=== PATIENT | female | born 1935 | race Caucasian/White ===

== ENCOUNTER 2017-09-10 20:22 | Inpatient (IN) | payer OTHER ==
[~2017-09-10] VITALS: Ht 170.2 cm; Wt 64.8 kg
--- NOTE | ~2017-09-10 | 2DMMODE ---
[facility] [address] [place] [address] 2 D/M-MODE ECHOCARDIOGRAM Name: AUSTIN NOLASCO Room #: 363-P ADM IN ..#: [id number] Admission: 09/10/17 Attend Phys: Hugo Cramer Discharge: Date of : 31 Date of Service: 09/11/17 1003 Report #: [id number] THIS REPORT FOR: //name// APPROVED REPORT Study performed: 09/11/2017 09:18:20 EXAM: Comprehensive 2D, Doppler, and color-flow Echocardiogram Patient Location: Bedside Room #: 363 Status: routine BSA: 1.75 HR: 82 bpm BP: 155/67 mmHg Other Information Study Quality: Good Indications Sepsis Dyspnea Hypertension/HDD 2D Dimensions RVDd: 25.99 mm LVEF(%): 54.95 (>50%) IVSd: 10.00 (7-11mm) LVOT Diam: 20.28 (18-24mm) LVDd: 47.51 mm PWd: 8.88 (7-11mm) Ascending Ao: 35.92 (22-36mm) LVDs: 33.96 (25-40mm) Aortic Root: 31.17 mm IVC: 20.00 mm Hogue's LVEF: 54.95 % Volumes Left Atrial Volume (Systole) Single Plane 4CH: 56.95 mL Single Plane 2CH: 46.65 mL LA ESV Index: 32.00 mL/m2 Aortic Valve AoV Peak Raleigh.: 0.99 m/s AO Peak Gr.: 3.95 mmHg LVOT Max P.54 mmHg LVOT Max V: 1.07 m/s AVTAR Vmax: 3.46 cm2 Mitral Valve E/A Ratio: 0.8 [facility] [place] [address] 2 D/M-MODE ECHOCARDIOGRAM Name: AUSTIN NOLASCO Room #: 363-P [facility] IN ..#: [id number] Admission: 09/10/17 Attend Phys: Hugo Cramer Discharge: Date of : 31 Date of Service: 09/11/17 1003 Report #: [id number] MV Decel. Time: 169.71 ms MV E Max Raleigh.: 0.75 m/s MV A [place].: 0.96 m/s MV PHT: 49.22 ms IVRT: 106.11 ms Pulmonary Valve PV Peak Raleigh.: 1.14 m/s PV Peak Gr.: 5.23 mmHg Pulmonary Vein P Vein S: 0.48 m/s P Vein A: 0.27 m/s P Vein D: 0.39 m/s P Vein A Dur.: 115.3 msec P Vein S/D Ratio: 1.23 Tricuspid Valve TR Peak Raleigh.: 3.58 m/s RAP Estimate: 10.00 mmHg TR Peak Gr.: 51.23 mmHg PA Pressure: 61.00 mmHg Left Ventricle The left ventricle is normal size. There is normal left ventricular wall thickness. The left ventricular systolic function is normal. LVEF is 55-60%. Grade I - abnormal relaxation pattern. Right Ventricle The right ventricle is normal size. The right ventricular systolic function is normal. Atria The left atrium size is normal. Right atrium is dilated. Aortic Valve Aortic valve is calcified and thickened but has adequate excursion. No aortic regurgitation is present. There is no aortic valvular stenosis. Mitral Valve The mitral valve is normal in structure. Mild mitral regurgitation. No evidence of mitral valve stenosis. Tricuspid Valve The tricuspid valve is normal in structure. Moderate tricuspid regurgitation. Estimated PAP 61mmHg. Pulmonic Valve The pulmonary valve is normal in structure. Trace pulmonic [address] [address] 2 D/M-MODE ECHOCARDIOGRAM Name: NOLASCOAUSTIN Vielka Room #: 363-P [facility] IN [facility]#: [id number] Admission: 09/10/17 Attend Phys: Hugo Cramer Discharge: Date of : 31 Date of Service: 09/11/17 1003 Report #: [id number] regurgitation. Great Vessels The aortic root is normal in size. The ascending aorta is borderline dilated. IVC is dilated and collapses >50% with inspiration. Pericardium Trace hemodynamically insignificant anterior pericardial effusion. <Conclusion> The left ventricle is normal size. LVEF is 55-60%. Right atrium is dilated. Aortic valve is calcified and thickened but has adequate excursion. No aortic regurgitation is present. There is no aortic valvular stenosis. The mitral valve is normal in structure. Mild mitral regurgitation. The tricuspid valve is normal in structure. Moderate tricuspid regurgitation. Estimated PAP 61mmHg. The pulmonary valve is normal in structure. Trace pulmonic regurgitation. The ascending aorta is borderline dilated. Trace hemodynamically insignificant anterior pericardial effusion. <ELECTRONICALLY SIGNED> By: Gurinder Kaur MD 09/11/17 1003 1003 100 Gurinder Kaur MD /INF
--- NOTE | ~2017-09-10 | EKG ---
[address] [address] ELECTROCARDIOGRAM REPORT Name: AUSTIN NOLASCO Room #: 363-P ADM IN M.R.#: [id number] Admission: 09/10/17 Attend Phys: Nate Goff DO Discharge: Date of : 31 Report #: [id number] THIS REPORT FOR: //name// [facility] ED Test Date: 2017-09-10 Test Time: 20:31:20 Pat Name: AUSTIN NOLASCO Department: Room: 363 Gender: F [employer] Supervisor: [id number] : 1935 Requested By: Stefania Singer Order Number: [id number] MD: Josep Dc Measurements Intervals [place] Rate: 91 P: 80 WA: 152 QRS: 94 QRSD: 93 T: 66 QT: 355 QTc: 437 Interpretive Statements Sinus rhythm Right axis deviation No previous ECG available for comparison Electronically Signed On 09-10-2017 22:40:12 [employer] by Josep Dc [email or web address] <ELECTRONICALLY SIGNED> By: Josep Dc MD 09/10/170 30 30 MD SARAH Villagomez
[2017-09-10 20:22] VITALS: BP 135/61
[2017-09-10 20:43] LABS: HEMATOCRIT 38.1 % (37.0-47.0); HEMOGLOBIN 12.5 gm/dL (12.0-15.0); MCH 30.3 pg (26.0-34.0); MCHC 32.7 g/dL (28.0-37.0); MCV 92.8 fL (80.0-100.0); RBC 4.11 mil/uL (4.20-5.00); RDW 13.9 % (10.5-14.5); WBC 13.1 thou/uL (4.0-11.0)
[2017-09-10 20:52] LABS: ABG SAMPLE TYPE ARTERIAL; BE(vivo) -0.6 mmol/L (-2 to +3); LACTATE 1.54 mmol/L (0.5-2.0); O2(CT) 17.1 mL/dL (15.0-23.0); O2Hb 93.4 % (92.0-98.0); PCO2 39.1 mmHg (35.0-45.0); PO2 73.4 mmHg (80.0-100.0); STICK SITE R.RADIAL; pH 7.405 (7.360-7.450); sO2 94.9 % (92.0-98.0); tCO2 25.2 mmol/L (24.0-30.0)
[2017-09-10 20:53] LABS: CALCIUM 8.8 mg/dL (8.5-10.1); CREATININE 1.1 mg/dL (0.6-1.0); POTASSIUM 4.4 mmol/L (3.5-5.1)
[2017-09-10] MEDS ORDERED: SEREVENT DISKU50 MCG INH (21:00)
[2017-09-10 21:01] LABS: TOTAL BILIRUBIN 0.6 mg/dL (<0.1-1.0); TROPONIN-I 0.07 ng/mL (<0.06)
[2017-09-10] MEDS ORDERED: DIOVAN40 MG PO (21:01)
[2017-09-10] MEDS ORDERED: PROAIR HFA8.5 GM INH (21:02)
[2017-09-10 22:13] VITALS: BP 108/56
[2017-09-10 22:49] VITALS: BP 110/69
[2017-09-10] MEDS ORDERED: ONE-A-DAY WOMENS PO (23:21)
[2017-09-10] MEDS ORDERED: Cod Liver Oil PO (23:21)
[2017-09-10] MEDS ORDERED: LUTEIN-ZEAXANT1 EACH PO (23:22)
[2017-09-10] MEDS ORDERED: PRESERVISION T1 EACH PO (23:28)
[2017-09-11 03:06] LABS: HEMATOCRIT 36.2 % (37.0-47.0); HEMOGLOBIN 11.6 gm/dL (12.0-15.0); MCH 30.1 pg (26.0-34.0); MCHC 32.2 g/dL (28.0-37.0); MCV 93.6 fL (80.0-100.0); RBC 3.86 mil/uL (4.20-5.00); WBC 11.3 thou/uL (4.0-11.0)
[2017-09-11 03:21] LABS: CALCIUM 8.4 mg/dL (8.5-10.1); CREATININE 0.8 mg/dL (0.6-1.0); POTASSIUM 4.1 mmol/L (3.5-5.1); TROPONIN-I 0.05 ng/mL (<0.06)
[2017-09-11 05:33] VITALS: BP 155/67
[2017-09-11 09:09] LABS: GLYCOHEMOGLOBIN (HGB A1C) 6.1 % (4.8-5.6)
[2017-09-11 12:47] VITALS: BP 108/66
[2017-09-11 17:00] VITALS: BP 119/62
[2017-09-11 19:30] VITALS: BP 113/53
[2017-09-12 03:49] VITALS: BP 133/78
[2017-09-12 05:54] LABS: ALBUMIN 2.6 g/dL (3.4-5.0); CALCIUM 9.1 mg/dL (8.5-10.1); CREATININE 0.9 mg/dL (0.6-1.0); PHOSPHORUS 4.2 mg/dL (2.5-4.9); POTASSIUM 4.4 mmol/L (3.5-5.1)
[2017-09-12 08:00] VITALS: BP 102/54
[2017-09-12 12:04] VITALS: BP 105/62
[2017-09-12 16:08] VITALS: BP 115/89
[2017-09-12 20:25] VITALS: BP 121/68
[2017-09-13 04:30] VITALS: BP 123/76
[2017-09-13 06:19] LABS: HEMATOCRIT 36.3 % (37.0-47.0); HEMOGLOBIN 11.8 gm/dL (12.0-15.0); MCH 29.8 pg (26.0-34.0); MCHC 32.6 g/dL (28.0-37.0); MCV 91.4 fL (80.0-100.0); RBC 3.97 mil/uL (4.20-5.00); RDW 13.8 % (10.5-14.5); WBC 20.2 thou/uL (4.0-11.0)
[2017-09-13 06:28] LABS: MANUAL DIFF YES
[2017-09-13 06:29] LABS: PLATELET COUNT 338 thou/uL (150-400)
[2017-09-13 06:32] LABS: CALCIUM 8.8 mg/dL (8.5-10.1); CREATININE 0.9 mg/dL (0.6-1.0); POTASSIUM 4.6 mmol/L (3.5-5.1)
[2017-09-13 07:43] VITALS: BP 129/75
[2017-09-13 08:46] LABS: ABSOLUTE NEUTROPHILS 18.2 thou/uL (1.4-8.2); PLATELET ESTIMATE NORMAL; TOTAL CELL COUNT 100
[2017-09-13] MEDS ORDERED: KEFLEX500 M1 PO (09:12)
[2017-09-13] MEDS ORDERED: AZITHROMYCIN 2250 MG PO (09:12)
[2017-09-13] MEDS ORDERED: MEDROL DOSPAK21 TA1 PO (09:13)
[2017-09-13 11:30] VITALS: BP 129/75
[2017-09-13 11:57] VITALS: BP 144/72
[2017-09-14 01:06] LABS: INFLUENZA B Negative (Negative); METAPNEUMOVIRUS Negative (Negative)
== END 2017-09-13 17:50 | disposition home health service (06) | DRG 871 ==
LOC: ER 20:22 → 3W 21:46 → EROBS 21:46 → 3W 22:11
PROVIDERS: Family Medicine; Hospitalist; Nurse Practitioner Acute Care; Physician Assistant
DX: A41.9 Sepsis, unspecified organism (principal); J18.9 Pneumonia, unspecified organism; J96.01 Acute respiratory failure with hypoxia; I31.3 Pericardial effusion (noninflammatory); J44.0 Chronic obstructive pulmonary disease with (acute) lower respiratory infection; I10 Essential (primary) hypertension; R73.9 Hyperglycemia, unspecified; R59.9 Enlarged lymph nodes, unspecified; Z96.1 Presence of intraocular lens; K21.9 Gastro-esophageal reflux disease without esophagitis; I34.0 Nonrheumatic mitral (valve) insufficiency; I07.1 Rheumatic tricuspid insufficiency; Z99.81 Dependence on supplemental oxygen; Z79.899 Other long term (current) drug therapy
CPT/HCPCS: 10779

== ENCOUNTER → 2018-06-24 | Outpatient (CLI) | payer OTHER ==
[~2018-06-24] MED LIST: AZITHROMYCIN 2250 MG PO; Cod Liver Oil PO; DIOVAN40 MG PO; KEFLEX500 M1 PO; LUTEIN-ZEAXANT1 EACH PO; MEDROL DOSPAK21 TA1 PO; ONE-A-DAY WOMENS PO; PRESERVISION T1 EACH PO; PROAIR HFA8.5 GM INH; SEREVENT DISKU50 MCG INH
== END ==
LOC: MRI 14:16
DX: M51.16 Intervertebral disc disorders with radiculopathy, lumbar region (principal); M48.062 Spinal stenosis, lumbar region with neurogenic claudication; M25.78 Osteophyte, vertebrae; M41.86 Other forms of scoliosis, lumbar region

== ENCOUNTER → 2018-09-26 | Outpatient (CLI) | payer OTHER | LOC: RAD 12:07 | DX: M16.0 Bilateral primary osteoarthritis of hip (principal); M43.08 Spondylolysis, sacral and sacrococcygeal region; M47.816 Spondylosis without myelopathy or radiculopathy, lumbar region ==

== ENCOUNTER → 2019-03-03 | Outpatient (CLI) | payer OTHER | LOC: RAD 13:45 | DX: J43.9 Emphysema, unspecified (principal); J84.10 Pulmonary fibrosis, unspecified; R91.1 Solitary pulmonary nodule; M47.814 Spondylosis without myelopathy or radiculopathy, thoracic region; M41.84 Other forms of scoliosis, thoracic region ==

== ENCOUNTER → 2019-03-31 | Outpatient (CLI) | payer OTHER | LOC: CAT 11:29 | DX: R91.1 Solitary pulmonary nodule (principal); J47.9 Bronchiectasis, uncomplicated; J98.4 Other disorders of lung ==

== ENCOUNTER → 2019-05-28 | Outpatient (CLI) | payer OTHER | LOC: RAD 14:08 | DX: J44.9 Chronic obstructive pulmonary disease, unspecified (principal); J98.4 Other disorders of lung; J84.10 Pulmonary fibrosis, unspecified; M47.815 Spondylosis without myelopathy or radiculopathy, thoracolumbar region; M41.85 Other forms of scoliosis, thoracolumbar region ==

== ENCOUNTER → 2019-09-14 | Outpatient (CLI) | payer OTHER | LOC: CAT 11:07 | DX: J47.9 Bronchiectasis, uncomplicated (principal); I31.3 Pericardial effusion (noninflammatory); I25.10 Atherosclerotic heart disease of native coronary artery without angina pectoris; J98.4 Other disorders of lung; J90 Pleural effusion, not elsewhere classified; M47.819 Spondylosis without myelopathy or radiculopathy, site unspecified; M41.80 Other forms of scoliosis, site unspecified; R91.1 Solitary pulmonary nodule ==

== ENCOUNTER → 2020-12-21 | Outpatient (CLI) | payer OTHER | LOC: RAD 15:32 | PROVIDERS: ATTEND Internal Medicine | DX: J44.9 Chronic obstructive pulmonary disease, unspecified (principal); J90 Pleural effusion, not elsewhere classified ==

== ENCOUNTER → 2021-01-02 | Outpatient (CLI) | payer OTHER | LOC: RAD 16:16 | PROVIDERS: ATTEND Internal Medicine | DX: J44.9 Chronic obstructive pulmonary disease, unspecified (principal); J90 Pleural effusion, not elsewhere classified ==

== ENCOUNTER → 2021-01-04 | Outpatient (CLI) | payer OTHER ==
[2021-01-04 11:52] LABS: ABSOLUTE NEUTROPHILS 4.4 thou/uL (1.4-8.2); BASOPHILS 1.2 % (0.0-2.0); HEMATOCRIT 41.9 % (37.0-47.0); HEMOGLOBIN 13.3 gm/dL (12.0-15.0); LYMPHOCYTES 13.6 % (24.0-44.0); MCH 30.5 pg (26.0-34.0); MCHC 31.7 g/dL (28.0-37.0); MCV 96.1 fL (80.0-100.0); MONOCYTES 8.1 % (1.0-8.0); PLATELET COUNT 160 thou/uL (150-400); POLYS 74.1 % (36.0-66.0); RBC 4.36 mil/uL (4.20-5.00); RDW 14.7 % (10.5-14.5); WBC 5.9 thou/uL (4.0-11.0)
[2021-01-04 12:03] LABS: ALBUMIN 3.6 g/dL (3.4-5.0); CREATININE 0.8 mg/dL (0.6-1.0); POTASSIUM 4.3 mmol/L (3.5-5.1); TOTAL BILIRUBIN 0.5 mg/dL (0.2-1.0); TOTAL PROTEIN 7.1 g/dL (6.4-8.2)
--- NOTE | 2021-01-04 12:35 | 2DMMODE ---
[facility] [place] [address] 2 D/M-MODE ECHOCARDIOGRAM Name: AUSTIN NOLASCO [id number] Admission: 01/04/21 Attend Phys: Ramírez Richards MD Discharge: Date of : 31 Report #: [id number] THIS REPORT FOR: cc: Torsten Pabon MD, Rene P. MD Lammoglia, Francisco J. MD ~ APPROVED REPORT Study performed: 01/04/2021 11:25:26 EXAM: Comprehensive 2D, Doppler, and color-flow Echocardiogram Patient Location: Out-Patient Status: routine BSA: 1.75 HR: 72 bpm BP: 155/67 mmHg Rhythm: NSR Other Information Study Quality: Adequate Indications Short of breath. COPD 2D Dimensions RVDd: 33.45 mm IVSd: 9.55 (7-11mm) LVOT Diam: 20.10 (18-24mm) LVDd: 40.48 mm PWd: 10.49 (7-11mm) Ascending Ao: 36.92 (22-36mm) LVDs: 28.03 (25-40mm) Aortic Root: 31.90 mm Volumes Left Atrial Volume (Systole) Single Plane 4CH: 39.25 mL Single Plane 2CH: 44.69 mL LA ESV Index: 27.00 mL/m2 Aortic Valve AoV Peak [place].: 1.32 m/s AO Peak Gr.: 6.97 mmHg LVOT Max P.85 mmHg LVOT Max V: 0.84 m/s AVTAR Vmax: 2.03 cm2 [facility] [address] [place] [address] 2 D/M-MODE ECHOCARDIOGRAM Name: AUSTIN NOLASCO Room #: REG CL Josefina#: [id number] Admission: 01/04/21 Attend Phys: Ramírez Richards, Discharge: Date of : 31 Report #: [id number] Mitral Valve E/A Ratio: 0.7 MV Decel. Time: 348.67 ms MV E Max Raleigh.: 0.41 m/s MV A [place].: 0.56 m/s MV PHT: 101.11 ms IVRT: 133.79 ms Pulmonary Valve PV Peak [place].: 0.65 m/s PV Peak Gr.: 1.67 mmHg Pulmonary Vein P Vein S: 0.50 m/s P Vein D: 0.25 m/s P Vein S/D Ratio: 2.00 Tricuspid Valve TR Peak Raleigh.: 3.53 m/s RAP Estimate: 5.00 mmHg TR Peak Gr.: 50.00 mmHg PA Pressure: 55.00 mmHg Left Ventricle The left ventricle is normal size. There is normal LV segmental wall motion. There is normal left ventricular wall thickness. Left ventricular systolic function is normal. LVEF is 55-60%. Grade I - abnormal relaxation pattern. Right Ventricle The right ventricle is normal size. The right ventricular systolic function is normal. Atria The left atrium size is normal. Right atrium is at the upper limits of normal. Aortic Valve Aortic valve is mildly thickened. No aortic regurgitation is present. There is no aortic valvular stenosis. Mitral Valve The mitral valve is normal in structure. Trace mitral regurgitation. No evidence of mitral valve stenosis. Tricuspid Valve The tricuspid valve is normal in structure. Mild to moderate [facility] [address] [place] [address] 2 D/M-MODE ECHOCARDIOGRAM Name: AUSTIN NOLASCO Room #: REG [facility]#: [id number] Admission: 01/04/21 Attend Phys: Ramírez Richards, Discharge: Date of : 31 Report #: [id number] tricuspid regurgitation. Estimated PAP [id number]. Pulmonic Valve The pulmonary valve is normal in structure. Trace pulmonic regurgitation. Great Vessels The aortic root is normal in size. The ascending aorta is normal in size. IVC is normal in size and collapses >50% with inspiration. Pericardium Small anterior pericardial effusions. <Conclusion> The left ventricle is normal size. Left ventricular systolic function is normal. LVEF is 55-60%. Right atrium is at the upper limits of normal. Aortic valve is mildly thickened. No aortic regurgitation is present. There is no aortic valvular stenosis. The mitral valve is normal in structure. Trace mitral regurgitation. The tricuspid valve is normal in structure. Mild to moderate tricuspid regurgitation. Estimated PAP [id number]. The pulmonary valve is normal in structure. Trace pulmonic regurgitation. The aortic root is normal in size. Small anterior pericardial effusions. <ELECTRONICALLY SIGNED> By: Gurinder Kaur MD 01/04/21 1234 1234 1234 Gurinder Kaur MD /INF
== END ==
LOC: CV 10:59
PROVIDERS: ATTEND Internal Medicine
DX: I08.2 Rheumatic disorders of both aortic and tricuspid valves (principal); I31.3 Pericardial effusion (noninflammatory); J90 Pleural effusion, not elsewhere classified

== ENCOUNTER → 2021-01-05 | Outpatient (CLI) | payer OTHER | LOC: CAT 11:07 | PROVIDERS: ATTEND Internal Medicine | DX: J90 Pleural effusion, not elsewhere classified (principal); R91.8 Other nonspecific abnormal finding of lung field; J98.4 Other disorders of lung; I31.3 Pericardial effusion (noninflammatory); M47.814 Spondylosis without myelopathy or radiculopathy, thoracic region; M41.84 Other forms of scoliosis, thoracic region; J84.10 Pulmonary fibrosis, unspecified ==

== ENCOUNTER → 2021-01-19 | Outpatient (CLI) | payer OTHER | LOC: RAD 13:29 | PROVIDERS: ATTEND Internal Medicine | DX: J90 Pleural effusion, not elsewhere classified (principal); J98.4 Other disorders of lung ==

== ENCOUNTER → 2021-01-24 | Outpatient (CLI) | payer OTHER ==
[2021-01-24 09:50] LABS: ABSOLUTE NEUTROPHILS 4.7 thou/uL (1.4-8.2); BASOPHILS 0.7 % (0.0-2.0); EOSINOPHILS 3.6 % (0.0-3.0); HEMATOCRIT 39.5 % (37.0-47.0); HEMOGLOBIN 12.9 gm/dL (12.0-15.0); LYMPHOCYTES 10.4 % (24.0-44.0); MCH 31.1 pg (26.0-34.0); MCHC 32.8 g/dL (28.0-37.0); MCV 94.8 fL (80.0-100.0); MONOCYTES 7.9 % (1.0-8.0); PLATELET COUNT 166 thou/uL (150-400); POLYS 77.4 % (36.0-66.0); RBC 4.16 mil/uL (4.20-5.00); RDW 14.1 % (10.5-14.5)
[2021-01-24 10:01] LABS: CALCIUM 8.8 mg/dL (8.5-10.1); POTASSIUM 4.1 mmol/L (3.5-5.1)
[2021-01-24 10:05] LABS: APTT 27.9 Seconds (24.5-32.8); PROTIME 10.9 Seconds (9.3-11.4)
[2021-01-24 12:38] LABS: BF NUCLEATED CELLS 1116 /mm3; BF RBC 10417 /mm3
[2021-01-24 12:39] LABS: CLARITY HAZY; COLOR AMBER; TOTAL VOLUME 60 mL
[2021-01-24 13:18] LABS: SOURCE PLEURAL
[2021-01-24 13:19] LABS: BF MACROPHAGE 5 %; BF NEUTROPHILS 15 %
--- NOTE | 2021-01-25 17:06 | PATH ---
[facility] [address] [place] [address] PATHOLOGY RPT PROCEDURE Name: AUSTIN NOLASCO [id number] Admission: 01/24/21 Date of : 31 Discharge: Report #: [id number] Path Case #: [id number] Note [facility] Accession Number: [id number] TESTS RESULT FLAG UNITS REF RANGE LAB Clinician Provided Cytology Information No. of containers..01 Other (Miscellaneous) Source: RT PLEURAL FLUID DIAGNOSIS: RT PLEURAL FLUID NEGATIVE FOR MALIGNANT EPITHELIAL CELLS. REACTIVE MESOTHELIAL CELLS ARE PRESENT. THIS INTERPRETATION INCLUDES EVALUATION OF A CELL BLOCK. Pathologist ICD10: 02 J90 Signed out by: Sarah Fernandez MD, Pathologist NPI- [id number] Performed by: Carolina Cooper, [employer]omanufacturing Technician ([facility]) Gross description: 01 27ML, RED/ORANGE, 1TP 1CB /LCS 01/25/2021 0345 Local FLAG LEGEND: L-Low Normal,H-High Normal,LL-Alert Low,HH-Alert High <-Panic Low,>-Panic High,A-Abnormal,AA-Critical Abnormal Performed at: [address] [place] [address] Humberto Williamson MD, [address] [address] Sarah Fernandez MD, Performed at: [address], [place], [place] [id number] MD Humberto Williamson MD Phone: [phone]
[2021-01-26 09:29] LABS: SOURCE CHEST
[2021-01-26 11:07] LABS: BODY FLUID ALBUMIN 2.3 g/dL (Not Estab.); BODY FLUID AMYLASE 37 U/L (()); BODY FLUID GLUCOSE 113 mg/dL (()); BODY FLUID LDH 101 IU/L (()); BODY FLUID PROTEIN 3.5 g/dL (())
== END | disposition home or self-care (01) ==
LOC: LAB 09:13 → CV 09:13
PROVIDERS: ATTEND Internal Medicine
DX: J90 Pleural effusion, not elsewhere classified (principal); Z98.890 Other specified postprocedural states

== ENCOUNTER → 2021-02-02 | Outpatient (CLI) | payer OTHER | LOC: RAD 13:28 | PROVIDERS: ATTEND Internal Medicine | DX: J90 Pleural effusion, not elsewhere classified (principal); J44.9 Chronic obstructive pulmonary disease, unspecified; J98.11 Atelectasis ==

== ENCOUNTER → 2021-05-10 | Outpatient (CLI) | payer OTHER | LOC: RAD 14:05 | PROVIDERS: ATTEND Internal Medicine | DX: J90 Pleural effusion, not elsewhere classified (principal); J47.9 Bronchiectasis, uncomplicated ==

== ENCOUNTER → 2021-05-11 | Outpatient (CLI) | payer OTHER ==
[2021-05-11 13:52] LABS: HEMATOCRIT 38.3 % (37.0-47.0); HEMOGLOBIN 12.2 gm/dL (12.0-15.0); MCH 30.9 pg (26.0-34.0); MCV 96.7 fL (80.0-100.0); RBC 3.96 mil/uL (4.20-5.00); RDW 14.8 % (10.5-14.5); WBC 6.1 thou/uL (4.0-11.0)
[2021-05-11 14:05] LABS: APTT 26.2 Seconds (24.5-32.8); CALCIUM 8.9 mg/dL (8.5-10.1); CREATININE 0.8 mg/dL (0.6-1.0); INR 0.94; POTASSIUM 4.3 mmol/L (3.5-5.1); PROTIME 10.3 Seconds (10.5-12.1)
[2021-05-12 16:07] LABS: COLOR DARK YELLOW; SOURCE THORACENTESIS; TOTAL VOLUME 40 mL
[2021-05-12 16:08] LABS: CLARITY CLOUDY
[2021-05-12 16:21] LABS: BF NUCLEATED CELLS 628 /mm3; BF RBC 3857 /mm3
[2021-05-12 17:37] LABS: BF MACROPHAGE 11 %; BF NEUTROPHILS 17 %
== END | disposition home or self-care (01) ==
LOC: SPEC 12:01
PROVIDERS: Pediatrics; ATTEND Internal Medicine
DX: J90 Pleural effusion, not elsewhere classified (principal); R06.02 Shortness of breath; I10 Essential (primary) hypertension; J44.9 Chronic obstructive pulmonary disease, unspecified; Z98.890 Other specified postprocedural states; Z79.899 Other long term (current) drug therapy; Z98.49 Cataract extraction status, unspecified eye

== ENCOUNTER → 2021-06-01 | Outpatient (CLI) | payer OTHER | LOC: RAD 13:45 | PROVIDERS: ATTEND Internal Medicine | DX: J90 Pleural effusion, not elsewhere classified (principal); J47.9 Bronchiectasis, uncomplicated ==